=== PATIENT | female | born 1985 | race Caucasian/White ===

== ENCOUNTER 2024-04-01 19:43 | Emergency (ER) | payer MEDICAID, SELFPAY ==
[2024-04-01 19:49] VITALS: BP 126/80; PULSE 108; RESP 22; TEMP 36.6; O2SAT 97; BMI 49.4
--- NOTE | 2024-04-01 20:05 | DI.RAD.S_ITS ---
PROCEDURE: XR CHEST 1V INDICATIONS: Shortness of breath TECHNIQUE: One view of the chest was acquired. COMPARISON: None. FINDINGS: Surgical changes and devices: None. Lungs and pleura: Lungs are clear. No pleural effusions or pneumothorax. Mediastinum: Mediastinal contours appear normal. Heart size is enlarged. Bones and chest wall: No suspicious bony lesions. Overlying soft tissues appear unremarkable. IMPRESSION: Cardiomegaly. Approved by: Radha Benson M.D.,Ph.D. on 04/01/2024 at 20:58
[2024-04-01 20:38] LABS: Add Manual Diff / Slide Review NO; Basophils Absolute Auto 100 /uL (0-100); Basophils Percent Auto 0.9 % (0-2); Eosinophils Absolute Auto 100 /uL (0-450); Eosinophils Percent Auto 1.1 % (2-4); Hemoglobin 13.5 g/dL (12.0-16.0); Lymphocytes Absolute Auto 1400 /uL (1100-4500); Lymphocytes Percent Auto 22.6 % (25-40); Mean Corpuscular HGB Conc 32.1 % (30-36); Mean Corpuscular Hemoglobin 29.4 PG (26-34); Mean Corpuscular Volume 91.7 fL (80-100); Monocytes Absolute Auto 500 /uL (0-900); Neutrophils Absolute Auto 4200 /uL (1500-7000); Neutrophils Percent Auto 67.4 % (50-75); Platelet Count 194 X10^3/uL (150-400); Red Blood Cell Count 4.58 X10^6/uL (4.0-5.2); Red Cell Distribution Width 21.3 % (11.6-14.8); White Blood Cell Count 6.3 X10^3/uL (4.5-11.0)
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
[2024-04-01 20:45] LABS: INR 2.8 (0.9-1.3); Prothrombin Time 30.8 SECONDS (9.4-12.5)
[2024-04-01 20:48] LABS: Anisocytosis 3+
[2024-04-01 20:50] LABS: Alanine Aminotransferase 67 IU/L (<35); Albumin 3.5 g/dL (3.5-5.0); Albumin Globulin Ratio 0.9 (1.0-2.8); Alkaline Phosphatase 130 U/L (38-126); Aspartate Aminotransferase 79 IU/L (14-36); BUN Creatinine Ratio 21.3 (6-22); Bilirubin Total 3.7 mg/dL (0.2-1.3); Blood Urea Nitrogen 33 mg/dL (7-17); Calcium 7.7 mg/dL (8.4-10.2); Carbon Dioxide 29 mmol/L (22-32); Chloride 98 mmol/L (98-107); Estimated Glomerular Filt Rate 44 mL/min (>60); Globulin 3.9 g/dL (1.7-4.1); Glucose 97 mg/dL (70-100); HEMOLYSIS < 15 (0-50); Sodium 135 mmol/L (137-145); Total Protein 7.4 g/dL (6.3-8.2)
--- NOTE | 2024-04-01 20:52 | EKG_ITS ---
[address] [address] Test Date: 2024-04-01 Pat Name: Karina Diego Department: [facility] Room: Gender: Female Senior Underwriter: : 1985 Requested By: Order Number: [id number] Reading MD: Eb Lira Measurements Intervals [place] Rate: 85 P: 68 MS: 140 QRS: 129 QRSD: 98 T: -11 QT: 382 QTc: 454 Interpretive Statements Normal sinus rhythm Possible Left atrial enlargement Incomplete right bundle branch block Possible Right ventricular hypertrophy Possible Inferior infarct , age undetermined Cannot rule out Anterior infarct , age undetermined Electronically Signed On 04-04-2024 9:44:17 PST by Eb Lira
[2024-04-01 20:57] LABS: Potassium 2.8 mmol/L (3.4-5.1)
[2024-04-01 21:02] LABS: NT-proBNP (BNP-Adult 18+) 2930 pg/mL (<125); Troponin I 0.031 ng/mL (0.01-0.034)
[2024-04-01 21:21] LABS: Appearance Urine UA CLEAR; Bilirubin Urine UA NEGATIVE (NEGATIVE); Color Urine UA YELLOW; Glucose Urine UA NEGATIVE (Negative); Ketones Urine UA NEGATIVE (NEGATIVE); Leukocyte Esterase Urine UA NEGATIVE (NEGATIVE); Nitrite Urine UA NEGATIVE (Negative); Occult Blood Urine UA NEGATIVE (Negative); Protein Urine UA 1+ (Negative)
[2024-04-01 21:25] LABS: Bacteria Urine None Seen; Culture Indicated Urine Cult Not Indicated; RBC Urine None Seen (0-5/HPF); Squamous Epithelial Cell Urine 0-1 /HPF (0-5/HPF); Urine Volume 10mL (spun); WBC Urine None Seen (0-5/HPF)
[2024-04-01 21:31] VITALS: BP 143/82; PULSE 88; RESP 24; O2SAT 96
[2024-04-01] MEDS: POTASSIUM CHLORIDE 20 MEQ TAB 40 MEQ PO (21:47)
[2024-04-01 22:05] LABS: Reflexed Lactate in 2 Hours Y
[2024-04-01 22:09] LABS: Magnesium 1.6 mg/dL (1.6-2.3)
[2024-04-01 22:42] LABS: Lactate 2HR (Lactic Acid Rflx) 1.6 mmol/L (0.7-2.1)
[2024-04-01 22:55] LABS: Troponin I 0.026 ng/mL (0.01-0.034)
[2024-04-01 23:00] LABS: Procalcitonin 0.183 ng/mL (<0.5)
[2024-04-01 23:50] VITALS: BP 134/86; PULSE 97; RESP 18; O2SAT 98
== END 2024-04-01 23:51 | disposition home or self-care (01) ==
PROVIDERS: Emergency Provider Emergency Medicine
DX: I50.9 Heart failure, unspecified (principal); K03.81 Cracked tooth; F15.90 Other stimulant use, unspecified, uncomplicated; T25.021A Burn of unspecified degree of right foot, initial encounter; X17.XXXA Contact with hot engines, machinery and tools, initial encounter; Z79.01 Long term (current) use of anticoagulants
CPT/HCPCS: 36415; 71045; 80053; 81001; 83605; 83735; 83880; 84145; 84484; 85025; 85610; 87040; 93005; 99284